=== PATIENT | female | born 1985 | race Caucasian/White ===

== ENCOUNTER 2021-10-29 10:46 | Emergency (ER) | payer OTHER ==
[~2021-10-29] VITALS: Ht 162.6 cm; Wt 81.7 kg
[2021-10-29 10:48] VITALS: BP 131/77
[2021-10-29] MEDS ORDERED: NAPROSYN500 MG PO (11:23)
[2021-10-29] MEDS ORDERED: FLEXERIL PO (11:23)
== END 2021-10-29 11:34 | disposition home or self-care (01) ==
LOC: ER 10:46
DX: M25.512 Pain in left shoulder (principal); J45.909 Unspecified asthma, uncomplicated; G43.909 Migraine, unspecified, not intractable, without status migrainosus; F17.210 Nicotine dependence, cigarettes, uncomplicated